=== PATIENT | female | born 1990 | race Caucasian/White ===

== ENCOUNTER 2016-07-09 10:47 | Emergency (ER) | payer OTHER ==
[~2016-07-09] VITALS: Ht 162.6 cm; Wt 78.0 kg
[~2016-07-09 10:47] MED LIST: ACET50TA PO; IBUP80TA PO; IRON27TA PO; MACR100C3 PO; prenatal vitamins PO
[2016-07-09] MEDS ORDERED: MICROGESTIN (10:57)
[2016-07-09] MEDS ORDERED: MORPHINE 4 MG/ML 1ML SYRINGE IV ONE (13:15)
[2016-07-09 13:42] LABS: CONTROL LINE UCG INT CTR LINE PRESENT
[2016-07-09] MEDS ORDERED: KETOROLAC 30 MG/ML VIAL (J1885) IV ONE (13:45)
[2016-07-09] MEDS ORDERED: CYCL10TA PO (18:02)
[2016-07-09] MEDS ORDERED: IBUP80TA PO (18:02)
[2016-07-09] MEDS ORDERED: NORC1TAB4 PO (18:02)
[2016-07-09 18:13] VITALS: BP 110/57
--- NOTE | 2016-07-09 19:23 | REP ---
MRI LUMBAR SPINE WITHOUT CONTRAST: HISTORY: Radiculopathy. A rudimentary disc is present at the S1-2 level. Decreased signal intensity on T2-weighted images is present in the L5-S1 intervertebral disc. The disc is decreased in height. These findings are consistent with disc degeneration. There is no disc bulge or herniation at the L1-2 and L2-3 levels. The nerves exit the neural foramina without compression. A diffuse disc bulge is present at the L3-4 level. This abuts the thecal sac. The L3 nerves exit the neural foramina without compression. A diffuse disc bulge is present at the L4-5 level. There is minimal compression of the thecal sac. The L4 nerves exit the neural foramina without compression. A diffuse disc bulge and small left paracentral disc extrusion are present at the L5-S1 level. There is inferior migration of disc material. There is minimal compression of the thecal sac and left S1 nerve as it exits the thecal sac. The L5 nerves exit the neural foramina without compression. The conus medullaris is normal in appearance terminating at the level of the T12-L1 intervertebral disc. Normal signal intensity is present in the lumbar vertebral bodies. A 2.8 cm cyst is present in the right adnexal region. IMPRESSION: 1. Diffuse disc bulge at the L3-4 level. This abuts the thecal sac. 2. Diffuse disc bulge at the L4-5 level with minimal thecal sac compression. 3. Diffuse disc bulge and small left paracentral disc extrusion at the L5-S1 level with minimal compression of the thecal sac and left S1 nerve as it exits the thecal sac. 4. There is a 2.8 cm right adnexal cyst. Ultrasound may be helpful for further evaluation if clinically indicated. Signed by Marquise Salazar MD 07/09/2016 07:28 P
--- NOTE | 2016-07-11 07:04 | ED PDOC ---
Post-Departure Follow-Up radiology report faxed to Angelica Abrams Sarah MD Jul 11, 2016 07:04
== END 2016-07-09 18:16 | disposition home or self-care (01) ==
LOC: M ED 12:14
DX: M51.17 Intervertebral disc disorders with radiculopathy, lumbosacral region (principal)
CPT/HCPCS: 72148; 81001; 81025; 84703; 96374; 96375; 99284; J1885; J3360

== ENCOUNTER 2016-09-25 17:36 | Emergency (ER) | payer OTHER ==
[~2016-09-25] VITALS: Ht 162.6 cm; Wt 77.3 kg
[~2016-09-25 17:36] MED LIST changes: +CYCL10TA PO; -IRON27TA PO; +IRON27TA2 PO; -MACR100C3 PO; +MACR100C43 PO; +MICROGESTIN; +NORC1TAB4 PO
[2016-09-25] MEDS ORDERED: ACETAMINOPHEN TAB 650MG DOSE (2X325MG) PO ONE (19:00)
[2016-09-25 19:15] LABS: BASO % 0.4 % (0.0-1.0); EOS # 0.2 K/mm3 (0.0-0.50); LARGE UNSTAINED CELL # 0.2 K/mm3 (0.0-0.4); LARGE UNSTAINED CELL % 2.2 % (0.0-4.0); LYMPH # 1.8 K/mm3 (1.5-6.5); LYMPH % 21.4 % (24.0-44.0); MEAN CORPUSCULAR HEMOGLOBIN 28.6 pg (27.0-33.0); MEAN CORPUSCULAR HGB CONC 34.1 g/dl (32.0-36.5); MEAN CORPUSCULAR VOLUME 83.8 fl (80.0-96.0); MONO # 0.4 K/mm3 (0.0-0.8); MONO % 5.7 % (0.0-5.0); NEUTROPHILS # 5.1 K/mm3 (1.8-7.7); NEUTROPHILS % 67.2 % (36.0-66.0); PLATELET COUNT, AUTOMATED 278 k/mm3 (150-450); RED CELL DISTRIBUTION WIDTH 12.9 % (11.5-14.5); WHITE BLOOD COUNT 7.6 K/mm3 (4.0-10.0)
[2016-09-25 19:37] LABS: ALBUMIN 3.5 GM/DL (3.2-5.2); ALKALINE PHOSPHATASE 52 U/L (45-117); ALT/SGPT 12 U/L (12-78); AMYLASE 25 U/L (25-115); ANION GAP 9 MEQ/L (8-16); AST/SGOT 10 U/L (15-37); BILIRUBIN,DIRECT < 0.1 MG/DL (0.0-0.2); BILIRUBIN,TOTAL 0.2 MG/DL (0.2-1.0); BLOOD UREA NITROGEN 12 MG/DL (7-18); CALCIUM LEVEL 8.9 MG/DL (8.5-10.1); CARBON DIOXIDE LEVEL 24 MEQ/L (21-32); CHLORIDE LEVEL 108 MEQ/L (98-107); GLOMERULAR FILTRATION RATE > 60.0 (>60); GLUCOSE, FASTING 87 MG/DL (70-105); POTASSIUM SERUM 4.1 MEQ/L (3.5-5.1); SODIUM LEVEL 141 MEQ/L (136-145); TOTAL PROTEIN 7.9 GM/DL (6.4-8.2)
[2016-09-25 19:50] LABS: CONTROL LINE HCG INT CTR LINE PRESENT
[2016-09-25 20:05] VITALS: BP 115/66
[2016-09-25] MEDS ORDERED: ONDANSETRON 4 MG TAB (S0181) PO ONE (20:15)
[2016-09-25] MEDS ORDERED: ONDA8TAB8 PO (20:19)
[2016-12-11] MEDS ORDERED: SERT25TA PO (17:51)
== END 2016-09-25 20:37 | disposition home or self-care (01) ==
LOC: M ED 18:38
DX: K52.9 Noninfective gastroenteritis and colitis, unspecified (principal); Z87.442 Personal history of urinary calculi; N83.299 Other ovarian cyst, unspecified side; N94.6 Dysmenorrhea, unspecified; Z87.891 Personal history of nicotine dependence; Z79.3 Long term (current) use of hormonal contraceptives

== ENCOUNTER 2016-10-03 10:40 | Emergency (ER) | payer OTHER ==
[~2016-10-03 10:40] MED LIST changes: +ONDA8TAB8 PO
[2016-10-03] MEDS ORDERED: NS 1,000 ML IV ONE (11:00)
[2016-10-03] MEDS ORDERED: ONDANSETRON 4MG/2ML VIAL (J2405) As Ordered ONE (11:03)
[2016-10-03] MEDS ORDERED: ONDANSETRON 4MG/2ML VIAL (J2405) IV ONE (11:03)
[2016-10-03] MEDS ORDERED: NALOXONE INJ 2 MG/2 ML SYRINGE (J2310) IV STA (11:08)
[2016-10-03 11:18] LABS: BASO % 0.5 % (0.0-1.0); EOS # 0.2 K/mm3 (0.0-0.50); EOS % 2.1 % (0.0-3.0); LARGE UNSTAINED CELL # 0.2 K/mm3 (0.0-0.4); LARGE UNSTAINED CELL % 2.5 % (0.0-4.0); LYMPH # 3.2 K/mm3 (1.5-6.5); LYMPH % 36.4 % (24.0-44.0); MEAN CORPUSCULAR HEMOGLOBIN 27.6 pg (27.0-33.0); MEAN CORPUSCULAR HGB CONC 32.5 g/dl (32.0-36.5); MONO # 0.3 K/mm3 (0.0-0.8); NEUTROPHILS # 4.6 K/mm3 (1.8-7.7); NEUTROPHILS % 54.6 % (36.0-66.0); PLATELET COUNT, AUTOMATED 396 k/mm3 (150-450); RED CELL DISTRIBUTION WIDTH 13.3 % (11.5-14.5); WHITE BLOOD COUNT 8.4 K/mm3 (4.0-10.0)
[2016-10-03 11:20] LABS: CONTROL LINE UCG INT CTR LINE PRESENT
[2016-10-03 11:28] LABS: METHADONE URINE NEGATIVE (NEGATIVE)
[2016-10-03] MEDS ORDERED: ISOVUE-370 76% 100ML VIAL (Q9967) As Ordered ONE (11:32)
[2016-10-03 11:33] LABS: CONTROL LINE HCG INT CTR LINE PRESENT
[2016-10-03 11:42] LABS: ABG BASE EXCESS -3.2 (-2.0-2.0); ABG PARTIAL PRESSURE CO2 34.6 mmHg (35.0-45.0); ABG PARTIAL PRESSURE O2 155.3 mmHg (75.0-100.0); ABG STANDARD HCO3 21.8 MEQ/L (22.0-26.0)
[2016-10-03 11:44] LABS: ALBUMIN 3.7 GM/DL (3.2-5.2); ALKALINE PHOSPHATASE 52 U/L (45-117); ALT/SGPT 25 U/L (12-78); ANION GAP 13 MEQ/L (8-16); AST/SGOT 23 U/L (15-37); BILIRUBIN,DIRECT < 0.1 MG/DL (0.0-0.2); BILIRUBIN,TOTAL 0.2 MG/DL (0.2-1.0); BLOOD UREA NITROGEN 6 MG/DL (7-18); CALCIUM LEVEL 7.7 MG/DL (8.5-10.1); CARBON DIOXIDE LEVEL 23 MEQ/L (21-32); CHLORIDE LEVEL 113 MEQ/L (98-107); CREATININE FOR GFR 0.64 MG/DL (0.55-1.02); GLOMERULAR FILTRATION RATE > 60.0 (>60); GLUCOSE, FASTING 99 MG/DL (70-105); POTASSIUM SERUM 3.7 MEQ/L (3.5-5.1); SODIUM LEVEL 149 MEQ/L (136-145); TOTAL PROTEIN 7.8 GM/DL (6.4-8.2)
--- NOTE | 2016-10-03 11:59 | REP ---
CT Head without contrast HISTORY: Altered mental status COMPARISON: None There is no intraparenchymal hemorrhage, acute infarct, mass or midline shift. The ventricular system is normal in appearance. There is no extra cerebral collection. There is no fracture. The visualized sinuses are clear. IMPRESSION: There is no intracranial lesion. Signed by Marquise Salazar MD 10/03/2016 11:51 A
--- NOTE | 2016-10-03 12:35 | REP ---
Chest two views HISTORY: Altered mental status Comparison: None The lungs are clear. The heart is normal in size. The pulmonary vasculature is normal in appearance. The bony structure is intact. IMPRESSION: No acute disease. Signed by Marquise Salazar MD 10/03/2016 12:26 P
--- NOTE | 2016-10-03 13:26 | REP ---
CT ABDOMEN AND PELVIS WITH CONTRAST: HISTORY: Abdominal pain. CONTRAST: Isovue 370, 100 mL. Calcifications are present in the kidneys consistent with nephrolithiasis. There is no hydroureter. The liver, gallbladder, pancreas, spleen and adrenal glands are normal in appearance. There is no mass, adenopathy or free fluid. The visualized lungs are clear. The urinary bladder and uterus are normal in appearance. There is no free fluid in the pelvis. IMPRESSION: Bilateral nephrolithiasis. Signed by Marquise Salazar MD 10/03/2016 01:29 P
[2016-10-03] MEDS ORDERED: metroNIDAZOLE (FLAGYL) 500 MG TAB PO ONE (14:15)
[2016-10-03] MEDS ORDERED: cefTRIAXone SOD 250 MG VIAL (J0696) IM ONE (14:15)
[2016-10-03] MEDS ORDERED: ADACEL/BOOSTRIX VACCINE (DIPHTH/PERTUSS/ACELL/TETANUS)0.5ML SYR (90715) IM ONE (14:15)
[2016-10-03] MEDS ORDERED: EXPOSURE KIT-ADULT 7 DAY SUPPLY PO ONE ×2 (14:15)
[2016-10-03] MEDS ORDERED: ULIPRISTAL ACETATE 30 MG TAB (ELLA) PO ONE (14:15)
[2016-10-03] MEDS ORDERED: AZITHROMYCIN 250 MG TAB PO ONE (14:15)
[2016-10-03 15:50] LABS: CONTROL LINE INT CTR LINE PRESENT; HIV SCRN NEGATIVE (NEGATIVE); HIV SCRN1 NEGATIVE (NEGATIVE)
[2016-10-03] MEDS ORDERED: TRUVTAB PO (16:02)
[2016-10-03] MEDS ORDERED: RALT40TA PO (16:02)
[2016-10-03 16:36] VITALS: BP 112/68
--- NOTE | 2016-10-03 19:15 | ECGEPIP ---
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
[2016-10-04 12:12] LABS: HEPATITIS B SURFACE ANTIBODY NEGATIVE (POSITIVE)
[2016-12-11] MEDS ORDERED: SERT25TA PO (17:51)
== END 2016-10-03 16:15 | disposition home or self-care (01) ==
LOC: M ED 10:40
DX: R41.82 Altered mental status, unspecified (principal); T76.21XA Adult sexual abuse, suspected, initial encounter; T40.5X1A Poisoning by cocaine, accidental (unintentional), initial encounter; Y92.9 Unspecified place or not applicable; Y93.9 Activity, unspecified; R00.0 Tachycardia, unspecified; I45.19 Other right bundle-branch block; N20.0 Calculus of kidney; F17.200 Nicotine dependence, unspecified, uncomplicated
CPT/HCPCS: 36600; 70450; 71010; 74177; 80048; 80076; 80307; 80320; 80329; 81001; 82550; 82803; 83605; 84443; 84703; 85025; 86706; 86780; 86803; 87081; 87210; 87252; 87340; 87806; 90471; 90715; 93000; 93041; 96361; 96372; 96374; 99285; J0696; J2405; Q9967

== ENCOUNTER → 2017-12-26 | Outpatient (CLI) | payer OTHER, SELFPAY | LOC: M OUTALCOH 08:59 | DX: F14.20 Cocaine dependence, uncomplicated (principal) ==

== ENCOUNTER 2018-02-01 08:54 | Outpatient (RCR) | payer OTHER, SELFPAY ==
[~2018-02-01 08:54] MED LIST changes: -ACET50TA PO; +MAPA500T2 PO; +RALT40TA PO; +SERT25TA PO; +TRUVTAB PO
== END 2018-02-06 ==
LOC: M OUTALCOH 08:54
PROVIDERS: ATTEND Psychiatry & Neurology Psychiatry
DX: F14.20 Cocaine dependence, uncomplicated (principal)

== ENCOUNTER 2018-03-07 16:00 | Outpatient (RCR) | payer OTHER | END 2018-03-09 | LOC: M OUTALCOH 16:00 | PROVIDERS: ATTEND Psychiatry & Neurology Psychiatry | DX: F14.20 Cocaine dependence, uncomplicated (principal) ==

== ENCOUNTER → 2018-04-20 | Outpatient (CLI) | payer OTHER, SELFPAY ==
[~2018-04-20] MED LIST changes: -SERT25TA PO; +SERT25TA85 PO
== END ==
LOC: M OUTALCOH 08:15
PROVIDERS: ATTEND Psychiatry & Neurology Psychiatry
DX: Z13.89 Encounter for screening for other disorder (principal); F10.10 Alcohol abuse, uncomplicated

== ENCOUNTER → 2018-06-06 | Outpatient (RCR) | payer OTHER, SELFPAY ==
[~2018-06-06] MED LIST changes: -NORC1TAB4 PO; +NORC1TAB7 PO
== END ==
LOC: M OUTALCOH 05-09 11:00
PROVIDERS: ATTEND Psychiatry & Neurology Psychiatry
DX: F10.10 Alcohol abuse, uncomplicated (principal); F14.20 Cocaine dependence, uncomplicated; Z72.0 Tobacco use

== ENCOUNTER 2018-07-05 15:00 | Outpatient (RCR) | payer OTHER, SELFPAY | END 2018-07-07 | LOC: M OUTALCOH 15:00 | PROVIDERS: ATTEND Psychiatry & Neurology Psychiatry | DX: F14.20 Cocaine dependence, uncomplicated (principal); F10.10 Alcohol abuse, uncomplicated; Z72.0 Tobacco use ==

== ENCOUNTER 2018-08-02 16:00 | Outpatient (RCR) | payer OTHER, SELFPAY | END 2018-08-06 | LOC: M OUTALCOH 16:00 | PROVIDERS: ATTEND Psychiatry & Neurology Psychiatry | DX: F10.10 Alcohol abuse, uncomplicated (principal); F14.20 Cocaine dependence, uncomplicated; Z72.0 Tobacco use | CPT/HCPCS: 90834; H0050 ==

== ENCOUNTER 2018-08-23 11:17 | Outpatient (RCR) | payer OTHER, SELFPAY | END 2018-09-06 | LOC: M OUTALCOH 11:17 | PROVIDERS: ATTEND Psychiatry & Neurology Psychiatry | DX: F14.20 Cocaine dependence, uncomplicated (principal) ==

== ENCOUNTER → 2020-01-29 | Outpatient (REF) | payer OTHER ==
[~2020-01-29] MED LIST changes: +CYCL-707 PO; -CYCL10TA PO
[2020-01-29 11:53] LABS: BASO % 0.6 % (0.0-1.0); EOS # 0.3 10^3/uL (0.0-0.5); EOS % 6.1 % (0.0-3.0); HEMATOCRIT 39.8 % (36.0-47.0); HEMOGLOBIN 12.9 g/dl (12.0-15.5); LYMPH # 1.8 10^3/uL (1.5-5.0); LYMPH % 34.8 % (24.0-44.0); MEAN CORPUSCULAR HEMOGLOBIN 29.1 pg (27.0-33.0); MEAN CORPUSCULAR HGB CONC 32.4 g/dl (32.0-36.5); MEAN CORPUSCULAR VOLUME 89.6 fl (80.0-96.0); MONO # 0.3 10^3/uL (0.0-0.8); MONO % 6.1 % (0.0-5.0); NEUTROPHILS # 2.7 10^3/uL (1.5-8.5); NEUTROPHILS % 52.2 % (36.0-66.0); PLATELET COUNT, AUTOMATED 263 10^3/uL (150-450); RED BLOOD COUNT 4.44 10^6/uL (4.00-5.40); WHITE BLOOD COUNT 5.2 10^3/uL (4.0-10.0)
[2020-01-29 12:20] LABS: ALT/SGPT 329 U/L (12-78); BILIRUBIN,DIRECT 0.2 MG/DL (0.0-0.2); BILIRUBIN,TOTAL 0.5 MG/DL (0.2-1.0); TOTAL PROTEIN 8.3 GM/DL (6.4-8.2)
[2020-01-29 12:24] LABS: HEPATITIS B SURFACE ANTIBODY NEGATIVE (POSITIVE)
[2020-01-31 23:08] LABS: HEPATITIS B CORE ANTIBODY IGG Negative (Negative); HEPATITIS C QUANTITATION 44760 IU/mL (.); HEPATITIS C VIRUS GENOTYPE 3 (.)
== END ==
LOC: M SFHCPLAZ 10:03
PROVIDERS: ATTEND Internal Medicine Infectious Disease
DX: B18.2 Chronic viral hepatitis C (principal)

== ENCOUNTER → 2023-02-01 | Outpatient (CLI) | payer OTHER ==
[~2023-02-01] MED LIST changes: +EMTR1TAB16 PO; -TRUVTAB PO
== END ==
LOC: M LAB 14:53
PROVIDERS: ATTEND Obstetrics & Gynecology Obstetrics
DX: Z71.9 Counseling, unspecified (principal)

== ENCOUNTER → 2023-06-08 | Outpatient (CLI) | payer OTHER ==
[2023-06-08 14:24] LABS: GLUCOSE,RANDOM 81 MG/DL (LESS THAN 200)
[2023-06-08 14:30] LABS: FOLLICLE STIMULATING HORMONE 7.3 mIU/ML; THYROID STIMULATING HORMONE 2.008 uIU/ML (0.55-4.78)
[2023-06-08 14:31] LABS: HCG, SERUM QUALITATIVE NEGATIVE (NEGATIVE); LUTEINIZING HORMONE 5.7 mIU/ML; PROLACTIN 5.69 NG/ML; TESTOSTERONE 19 NG/DL (14-76)
== END ==
LOC: M LAB 12:00
PROVIDERS: ATTEND Obstetrics & Gynecology Obstetrics
DX: N97.9 Female infertility, unspecified (principal)

== ENCOUNTER → 2023-06-28 | Outpatient (CLI) | payer OTHER | LOC: M LAB 15:00 | PROVIDERS: ATTEND Obstetrics & Gynecology Obstetrics | DX: N97.9 Female infertility, unspecified (principal) ==

== ENCOUNTER 2023-08-22 16:44 | Emergency (ER) | payer OTHER ==
[~2023-08-22 16:44] MED LIST changes: +ONDA-284 PO; -ONDA8TAB8 PO
[2023-08-23] MEDS ORDERED: ARIP1TAB6 (17:36)
[2023-08-23] MEDS ORDERED: BUPR-597 (17:36)
[2023-08-23] MEDS ORDERED: PRENMIS3 PO (17:36)
[2023-08-23] MEDS ORDERED: TRAZ-252 (17:36)
== END 2023-08-22 17:01 | disposition left against medical advice (07) ==
LOC: M ED 16:44
DX: Z53.21 Procedure and treatment not carried out due to patient leaving prior to being seen by health care provider (principal)

== ENCOUNTER 2023-08-23 16:26 | Emergency (ER) | payer OTHER ==
[~2023-08-23] VITALS: Ht 162.6 cm; Wt 107.2 kg
[2023-08-23] MEDS ORDERED: ARIP1TAB6 (17:36)
[2023-08-23] MEDS ORDERED: TRAZ-252 (17:36)
[2023-08-23] MEDS ORDERED: PRENMIS3 PO (17:36)
[2023-08-23] MEDS ORDERED: BUPR-597 (17:36)
[2023-08-23 18:54] VITALS: BP 110/66; TEMP 98.3; O2SAT 98
== END 2023-08-23 19:48 | disposition left against medical advice (07) ==
LOC: M ED 16:26
DX: Z53.21 Procedure and treatment not carried out due to patient leaving prior to being seen by health care provider (principal)

== ENCOUNTER 2023-08-26 07:20 | Emergency (ER) | payer OTHER ==
[~2023-08-26 07:20] MED LIST changes: +ARIP1TAB6; +BUPR-597; +PRENMIS3 PO; +TRAZ-252
[2023-08-26] MEDS ORDERED: BUPR-597 PO (19:07)
[2023-08-26] MEDS ORDERED: TRAZ-186 PO (19:07)
[2023-08-26] MEDS ORDERED: ARIP1TAB6 PO (19:07)
== END 2023-08-26 08:30 | disposition left against medical advice (07) ==
LOC: M ED 07:20
DX: Z53.21 Procedure and treatment not carried out due to patient leaving prior to being seen by health care provider (principal)

== ENCOUNTER 2023-08-26 15:45 | Emergency (ER) | payer OTHER ==
[~2023-08-26] VITALS: Ht 162.6 cm; Wt 107.8 kg
[2023-08-26 18:50] VITALS: BP 138/70; TEMP 97.3; O2SAT 100
[2023-08-26] MEDS ORDERED: TRAZ-186 PO (19:07)
[2023-08-26] MEDS ORDERED: BUPR-597 PO (19:07)
[2023-08-26] MEDS ORDERED: ARIP1TAB6 PO (19:07)
== END 2023-08-26 19:20 | disposition home or self-care (01) ==
LOC: M ED 15:45
DX: Z76.0 Encounter for issue of repeat prescription (principal); F32.A Depression, unspecified; F31.9 Bipolar disorder, unspecified; F17.200 Nicotine dependence, unspecified, uncomplicated; F10.10 Alcohol abuse, uncomplicated; Z87.442 Personal history of urinary calculi; Z91.018 Allergy to other foods; Z91.048 Other nonmedicinal substance allergy status; Z79.899 Other long term (current) drug therapy

== ENCOUNTER 2023-09-07 13:16 | Emergency (ER) | payer OTHER ==
[~2023-09-07] VITALS: Ht 162.6 cm; Wt 107.7 kg
[~2023-09-07 13:16] MED LIST changes: +ARIP1TAB6 PO; +BUPR-597 PO; +TRAZ-186 PO
[2023-09-07 14:02] LABS: BASO # 0.1 10^3/uL (0.0-0.2); BASO % 0.5 % (0.0-1.0); EOS # 0.4 10^3/uL (0.0-0.5); EOS % 3.9 % (0.0-3.0); HEMATOCRIT 35.8 % (36.0-47.0); HEMOGLOBIN 12.1 g/dl (12.0-15.5); LYMPH # 2.4 10^3/uL (1.5-5.0); LYMPH % 21.4 % (24.0-44.0); MEAN CORPUSCULAR HEMOGLOBIN 28.6 pg (27.0-33.0); MEAN CORPUSCULAR HGB CONC 33.8 g/dl (32.0-36.5); MEAN CORPUSCULAR VOLUME 84.6 fl (80.0-96.0); MONO # 0.5 10^3/uL (0.0-0.8); MONO % 4.2 % (2.0-8.0); NEUTROPHILS # 7.7 10^3/uL (1.5-8.5); NEUTROPHILS % 69.6 % (36.0-66.0); PLATELET COUNT, AUTOMATED 303 10^3/uL (150-450); RED BLOOD COUNT 4.23 10^6/uL (4.00-5.40); WHITE BLOOD COUNT 11.1 10^3/uL (4.0-10.0)
[2023-09-07 14:28] LABS: LIPASE 42 U/L (12-53)
[2023-09-07 14:30] LABS: ALBUMIN 3.6 G/DL (3.2-5.2); ALKALINE PHOSPHATASE 63 U/L (46-116); ALT/SGPT 16 U/L (7.0-40); AST/SGOT 11 U/L (<34); BILIRUBIN,DIRECT < 0.1 MG/DL (<0.4); BILIRUBIN,TOTAL 0.3 MG/DL (0.3-1.2); BLOOD UREA NITROGEN 11 MG/DL (9-23); CALCIUM LEVEL 9.2 MG/DL (8.5-10.1); CARBON DIOXIDE LEVEL 25 MMOL/L (20-31); CHLORIDE LEVEL 108 MMOL/L (98-107); CREATININE FOR GFR 0.63 MG/DL (0.55-1.30); GLOMERULAR FILTRATION RATE > 60.0 (>60); GLUCOSE, FASTING 101 MG/DL (60-100); POTASSIUM SERUM 3.8 MMOL/L (3.5-5.1); SODIUM LEVEL 139 MMOL/L (136-145); TOTAL PROTEIN 6.8 G/DL (5.7-8.2)
[2023-09-07 14:41] LABS: HCG, SERUM QUALITATIVE NEGATIVE (NEGATIVE)
[2023-09-07] MEDS ORDERED: ISOVUE-370 76% 100ML VIAL As Ordered ONE (18:01)
[2023-09-07 18:19] LABS: Trichomonas vaginalis (AMP) NOT DETECTED (NEGATIVE)
[2023-09-07] MEDS: NS 1,000 ML IV ONE (18:24)
[2023-09-07] MEDS: KETOROLAC 30 MG/ML 1ML VIAL IV ONE (18:25)
[2023-09-07 18:42] LABS: GC DNA AMPLIFICATION NEGATIVE (NEGATIVE)
[2023-09-07] MEDS ORDERED: MIRA3350 PO (18:50)
[2023-09-07] MEDS ORDERED: KETO10TAB PO (18:50)
[2023-09-07 18:59] VITALS: BP 116/74; TEMP 97.7; O2SAT 98
== END 2023-09-07 19:05 | disposition home or self-care (01) ==
LOC: M ED 13:16
DX: R10.2 Pelvic and perineal pain (principal); F41.9 Anxiety disorder, unspecified; F32.A Depression, unspecified; Z91.018 Allergy to other foods; Z91.048 Other nonmedicinal substance allergy status; Z79.899 Other long term (current) drug therapy
CPT/HCPCS: 74177; 76830; 76856; 80048; 80076; 81001; 83690; 84703; 85025; 87661; 87810; 87850; 93976; 96361; 96374; 99284; J1885; Q9967

== ENCOUNTER → 2023-10-14 | Outpatient (REF) | payer OTHER ==
[~2023-10-14] MED LIST changes: +KETO10TAB PO; +MIRA3350 PO
[2023-10-14 14:49] LABS: ALBUMIN 3.7 G/DL (3.2-5.2); ALKALINE PHOSPHATASE 63 U/L (46-116); ALT/SGPT 23 U/L (7.0-40); AST/SGOT 14 U/L (<34); BILIRUBIN,TOTAL 0.4 MG/DL (0.3-1.2); BLOOD UREA NITROGEN 11 MG/DL (9-23); CALCIUM LEVEL 9.7 MG/DL (8.5-10.1); CARBON DIOXIDE LEVEL 26 MMOL/L (20-31); CHLORIDE LEVEL 106 MMOL/L (98-107); CHOLESTEROL LEVEL 160 MG/DL (<200); CHOLESTEROL RISK RATIO 4.13 (<5); CREATININE FOR GFR 0.64 MG/DL (0.55-1.30); GLOMERULAR FILTRATION RATE > 60.0 (>60); GLUCOSE, FASTING 91 MG/DL (60-100); HDL CHOLESTEROL 38.7 MG/DL (>40); LDL CHOLESTEROL 99.3 MG/DL (<100); MAGNESIUM LEVEL 1.9 MG/DL (1.8-2.4); NON-HDL-C 121.3 MG/DL; POTASSIUM SERUM 4.5 MMOL/L (3.5-5.1); SODIUM LEVEL 138 MMOL/L (136-145); TOTAL PROTEIN 7.3 G/DL (5.7-8.2); TRIGLYCERIDES LEVEL 110 MG/DL (<150)
[2023-10-14 14:55] LABS: TOTAL 25(OH) VITAMIN D 37.8 NG/ML (20.0-100.0)
[2023-10-14 15:00] LABS: HEMOGLOBIN A1c 5.3 % (4.0-6.0)
[2023-10-15 18:34] LABS: HIV 1&2 SCREEN NEGATIVE (NEGATIVE)
[2023-10-15 18:55] LABS: HEPATITIS C VIRUS ABY INDEX > 11.00 INDEX (<0.8)
[2023-10-18 11:27] LABS: HCV RNA QUANTITATION <15 NOT DETECTED IU/mL (NOT DETECTED); HCV RNA log10 <1.18 NOT DETECTED Log IU/mL (NOT DETECTED)
== END ==
LOC: M LAB REF 12:40
PROVIDERS: ATTEND Nurse Practitioner Family
DX: E66.9 Obesity, unspecified (principal); Z11.59 Encounter for screening for other viral diseases; E55.9 Vitamin D deficiency, unspecified; Z11.3 Encounter for screening for infections with a predominantly sexual mode of transmission

== ENCOUNTER 2024-05-09 16:06 | Emergency (ER) | payer OTHER ==
[~2024-05-09] VITALS: Ht 162.6 cm; Wt 111.8 kg
[2024-05-09 17:10] LABS: KETONE, URINE AUTO RFX NEGATIVE (NEGATIVE); NITRITE, URINE AUTO RFX NEGATIVE (NEGATIVE); RBC, URINE AUTO RFX TNTC /HPF (0-3); SQUAM EPITHELIAL CELL UR AURFX 9 /HPF (0-6)
[2024-05-09 17:13] LABS: LEUKOCYTE ESTERASE UR AUTO RFX 1+ (NEGATIVE); WBC, URINE AUTO RFX 16 /HPF (0-3)
[2024-05-09 18:14] VITALS: TEMP 98.9; O2SAT 100
[2024-05-09 18:22] LABS: BASO % 0.2 % (0.0-1.0); EOS # 0.4 10^3/uL (0.0-0.5); EOS % 3.6 % (0.0-3.0); HEMATOCRIT 33.3 % (36.0-47.0); HEMOGLOBIN 10.8 g/dl (12.0-15.5); LYMPH # 2.6 10^3/uL (1.5-5.0); LYMPH % 21.5 % (24.0-44.0); MEAN CORPUSCULAR HEMOGLOBIN 27.1 pg (27.0-33.0); MEAN CORPUSCULAR HGB CONC 32.4 g/dl (32.0-36.5); MEAN CORPUSCULAR VOLUME 83.5 fl (80.0-96.0); MONO # 0.6 10^3/uL (0.0-0.8); NEUTROPHILS # 8.5 10^3/uL (1.5-8.5); NEUTROPHILS % 69.2 % (36.0-66.0); PLATELET COUNT, AUTOMATED 294 10^3/uL (150-450); RED BLOOD COUNT 3.99 10^6/uL (4.00-5.40); WHITE BLOOD COUNT 12.2 10^3/uL (4.0-10.0)
[2024-05-09 18:53] LABS: BLOOD UREA NITROGEN 7 MG/DL (9-23); CALCIUM LEVEL 8.6 MG/DL (8.5-10.1); CARBON DIOXIDE LEVEL 25 MMOL/L (20-31); CHLORIDE LEVEL 104 MMOL/L (98-107); CREATININE FOR GFR 0.66 MG/DL (0.55-1.30); GLOMERULAR FILTRATION RATE > 60.0 (>60); GLUCOSE, FASTING 84 MG/DL (60-100); POTASSIUM SERUM 3.8 MMOL/L (3.5-5.1); SODIUM LEVEL 136 MMOL/L (136-145)
[2024-05-09 18:56] LABS: HCG, SERUM QUALITATIVE NEGATIVE (NEGATIVE)
[2024-05-09] MEDS: NS (Normal Saline) 0.9% 1,000 ML IV ONE (21:31)
[2024-05-09] MEDS: KETOROLAC 30 MG/ML 1ML VIAL IV ONE (21:31)
[2024-05-09 22:24] VITALS: BP 134/93
[2024-05-09] MEDS ORDERED: PROV10TA PO (23:37)
[2024-05-09] MEDS ORDERED: IBUP-1022 PO (23:37)
[2024-05-10] MEDS: medroxyPROGESTERone 5MG TABLET PO ONE
== END 2024-05-10 00:06 | disposition home or self-care (01) ==
LOC: M ED 16:06
DX: N93.8 Other specified abnormal uterine and vaginal bleeding (principal); N92.0 Excessive and frequent menstruation with regular cycle; Z91.018 Allergy to other foods; Z91.048 Other nonmedicinal substance allergy status; Z79.899 Other long term (current) drug therapy
CPT/HCPCS: 76830; 76856; 80048; 81001; 84703; 85025; 86850; 86900; 86901; 87086; 93976; 96374; 99284; J1885

== ENCOUNTER → 2024-06-06 | Outpatient (REF) | payer OTHER ==
[~2024-06-06] MED LIST changes: -BUPR-597; -BUPR-597 PO; +BUPR-766; +BUPR-766 PO; +IBUP-1022 PO; +PROV10TA PO
[2024-06-06 15:07] LABS: BASO # 0.1 10^3/uL (0.0-0.2); BASO % 0.5 % (0.0-1.0); EOS # 0.4 10^3/uL (0.0-0.5); EOS % 3.8 % (0.0-3.0); HEMATOCRIT 35.9 % (36.0-47.0); HEMOGLOBIN 11.3 g/dl (12.0-15.5); LYMPH # 2.2 10^3/uL (1.5-5.0); LYMPH % 20.2 % (24.0-44.0); MEAN CORPUSCULAR HGB CONC 31.5 g/dl (32.0-36.5); MEAN CORPUSCULAR VOLUME 85.9 fl (80.0-96.0); MONO # 0.6 10^3/uL (0.0-0.8); MONO % 5.3 % (2.0-8.0); NEUTROPHILS # 7.5 10^3/uL (1.5-8.5); NEUTROPHILS % 69.7 % (36.0-66.0); PLATELET COUNT, AUTOMATED 359 10^3/uL (150-450); RED BLOOD COUNT 4.18 10^6/uL (4.00-5.40); WHITE BLOOD COUNT 10.8 10^3/uL (4.0-10.0)
[2024-06-06 15:35] LABS: HEMOGLOBIN A1c 5.2 % (4.0-6.0)
[2024-06-06 15:42] LABS: FERRITIN 16.6 NG/ML (7.3-270.7); FOLATE > 24.0 NG/ML (>5.4); VITAMIN B12 LEVEL 479 PG/ML (211-911)
[2024-06-06 15:43] LABS: ALBUMIN 3.6 G/DL (3.2-5.2); ALKALINE PHOSPHATASE 67 U/L (35-104); ALT/SGPT 24 U/L (7.0-40); AST/SGOT 19 U/L (<34); BILIRUBIN,TOTAL 0.2 MG/DL (0.3-1.2); BLOOD UREA NITROGEN 9 MG/DL (9-23); CALCIUM LEVEL 9.5 MG/DL (8.5-10.1); CARBON DIOXIDE LEVEL 26 MMOL/L (20-31); CHLORIDE LEVEL 107 MMOL/L (98-107); CHOLESTEROL LEVEL 157 MG/DL (<200); CHOLESTEROL RISK RATIO 4.96 (<5); CREATININE FOR GFR 0.68 MG/DL (0.55-1.30); FREE T4 1.03 NG/DL (0.89-1.76); GLOMERULAR FILTRATION RATE > 90.0 (>60); GLUCOSE, FASTING 82 MG/DL (60-100); HDL CHOLESTEROL 31.6 MG/DL (>40); IRON (FE) 42 UG/DL (50-170); LDL CHOLESTEROL 73.2 MG/DL (<100); NON-HDL-C 125.4 MG/DL; PERCENT SATURATION 11.9 % (13.2-45.0); POTASSIUM SERUM 4.7 MMOL/L (3.5-5.1); SODIUM LEVEL 139 MMOL/L (136-145); THYROID STIMULATING HORMONE 1.684 uIU/ML (0.55-4.78); TOTAL IRON BINDING CAPACITY 352 UG/DL (250-425); TOTAL PROTEIN 7.3 G/DL (5.7-8.2); TRIGLYCERIDES LEVEL 261 MG/DL (<150)
== END ==
LOC: M LAB REF 14:17
PROVIDERS: ATTEND Nurse Practitioner Family
DX: D53.9 Nutritional anemia, unspecified (principal); E66.9 Obesity, unspecified

== ENCOUNTER → 2024-08-13 | Outpatient (CLI) | payer OTHER ==
[2024-08-13 18:33] LABS: BASO # 0.0 10^3/uL (0.0-0.2); BASO % 0.4 % (0.0-1.0); EOS # 0.6 10^3/uL (0.0-0.5); EOS % 6.5 % (0.0-3.0); LYMPH # 2.9 10^3/uL (1.5-5.0); LYMPH % 30.6 % (24.0-44.0); MONO # 0.6 10^3/uL (0.0-0.8); MONO % 5.9 % (2.0-8.0); NEUTROPHILS # 5.3 10^3/uL (1.5-8.5); NEUTROPHILS % 56.2 % (36.0-66.0); PLATELET COUNT, AUTOMATED 331 10^3/uL (150-450)
[2024-08-13 19:00] LABS: IRON (FE) 31.0 UG/DL (50-170)
== END ==
LOC: M LAB 17:04
PROVIDERS: ATTEND Student in an Organized Health Care Education/Training Program
DX: D53.9 Nutritional anemia, unspecified (principal)

== ENCOUNTER → 2024-08-21 | Outpatient (CLI) | payer OTHER ==
[2024-08-21 10:35] LABS: BASO # 0.0 10^3/uL (0.0-0.2); BASO % 0.4 % (0.0-1.0); EOS # 0.6 10^3/uL (0.0-0.5); EOS % 7.1 % (0.0-3.0); LYMPH # 2.0 10^3/uL (1.5-5.0); LYMPH % 24.1 % (24.0-44.0); MONO # 0.4 10^3/uL (0.0-0.8); MONO % 4.5 % (2.0-8.0); NEUTROPHILS # 5.4 10^3/uL (1.5-8.5); NEUTROPHILS % 63.5 % (36.0-66.0); PLATELET COUNT, AUTOMATED 311 10^3/uL (150-450)
[2024-08-21 10:59] LABS: IRON (FE) 28.0 UG/DL (50-170)
== END ==
LOC: M LAB 07:42
PROVIDERS: ATTEND Student in an Organized Health Care Education/Training Program
DX: D53.9 Nutritional anemia, unspecified (principal)

== ENCOUNTER → 2024-10-05 | Outpatient (CLI) | payer OTHER ==
[~2024-10-05] MED LIST changes: -IBUP-1022 PO; +IBUP600T42 PO
== END ==
LOC: M RAD 15:29
PROVIDERS: ATTEND Student in an Organized Health Care Education/Training Program
DX: R35.0 Frequency of micturition (principal); M54.50 Low back pain, unspecified